=== PATIENT | female | born 1955 | race Caucasian/White ===

== ENCOUNTER → 2016-10-24 | Outpatient (CLI) | payer OTHER ==
[2016-10-24 09:43] LABS: ALANINE AMINOTRANSFERASE 25 U/L (9-52); ALBUMIN 4.6 g/dL (3.5-5.0); ALKALINE PHOSPHATASE 96 U/L (38-126); ANION GAP 12 (5-19); ASPARTATE AMINO TRANSFERASE 22 U/L (14-36); BILIRUBIN,DIRECT 0.4 mg/dL (0.0-0.4); BILIRUBIN,TOTAL 0.6 mg/dL (0.2-1.3); BLOOD UREA NITROGEN 18 mg/dL (7-20); CALCIUM 10.4 mg/dL (8.4-10.2); CARBON DIOXIDE 25 mmol/L (22-30); CHLORIDE 96 mmol/L (98-107); CREATININE RESULT 0.72 mg/dL (0.52-1.25); GLUCOSE 95 mg/dL (75-110); POTASSIUM 4.5 mmol/L (3.6-5.0); SODIUM 133.1 mmol/L (137-145); TOTAL PROTEIN 8.5 g/dL (6.3-8.2)
== END ==
LOC: CCC 07:55
DX: I10 Essential (primary) hypertension (principal); E11.8 Type 2 diabetes mellitus with unspecified complications
CPT/HCPCS: 36415; 80053

== ENCOUNTER → 2017-04-27 | Outpatient (CLI) | payer OTHER ==
[2017-04-27 09:28] LABS: ABSOLUTE BASOPHILS # (AUTO) 0.1 10^3/uL (0.0-0.2); ABSOLUTE EOSINOPHILS # (AUTO) 0.1 10^3/uL (0.0-0.6); ABSOLUTE LYMPHOCYTES (AUTO) 1.6 10^3/uL (0.5-4.7); ABSOLUTE MONOCYTES (AUTO) 0.6 10^3/uL (0.1-1.4); ABSOLUTE NEUT (AUTO) 4.1 10^3/uL (1.7-8.2); BASOPHILS % (AUTO) 0.8 % (0-2); HEMATOCRIT 39.5 % (36.0-47.0); HEMOGLOBIN 13.6 g/dL (12.0-15.5); LYMPHOCYTES % (AUTO) 25.2 % (13-45); MEAN CORPUSCULAR HEMOGLOBIN 28.3 pg (27.0-33.4); MEAN CORPUSCULAR HGB CONC 34.3 g/dL (32.0-36.0); MEAN CORPUSCULAR VOLUME 82 fl (80-97); MONOCYTES % (AUTO) 8.8 % (3-13); PLATELET COUNT 186 10^3/uL (150-450); SEGMENTED NEUTROPHILS % (AUTO) 64.2 % (42-78); TOTAL CELLS COUNTED % (AUTO) 100 %; WHITE BLOOD COUNT 6.4 10^3/uL (4.0-10.5)
[2017-04-27 09:48] LABS: ALANINE AMINOTRANSFERASE 32 U/L (9-52); ALBUMIN 4.7 g/dL (3.5-5.0); ALKALINE PHOSPHATASE 95 U/L (38-126); ANION GAP 14 (5-19); ASPARTATE AMINO TRANSFERASE 23 U/L (14-36); BILIRUBIN,DIRECT 0.1 mg/dL (0.0-0.4); BILIRUBIN,TOTAL 0.5 mg/dL (0.2-1.3); BLOOD UREA NITROGEN 17 mg/dL (7-20); CALCIUM 10.3 mg/dL (8.4-10.2); CARBON DIOXIDE 25 mmol/L (22-30); CHLORIDE 99 mmol/L (98-107); CHOLESTEROL 205.57 mg/dL (0-200); GLUCOSE 102 mg/dL (75-110); POTASSIUM 4.7 mmol/L (3.6-5.0); SODIUM 138.2 mmol/L (137-145); TOTAL PROTEIN 8.3 g/dL (6.3-8.2); TRIGLYCERIDES 96 mg/dL (<150)
[2017-04-27 09:59] LABS: DIRECT LDL 123 mg/dL (<100)
== END ==
LOC: CCC 08:20
DX: E10.8 Type 1 diabetes mellitus with unspecified complications (principal); I25.10 Atherosclerotic heart disease of native coronary artery without angina pectoris
CPT/HCPCS: 36415; 80053; 80061; 83036; 84443; 85025

== ENCOUNTER → 2017-06-08 | Outpatient (CLI) | payer OTHER ==
--- NOTE | 2017-06-08 12:27 | RADIOLOGY REPORT (SQ) ---
EXAM DESCRIPTION: CHEST PA/LATERAL COMPLETED DATE/TIME: 06/08/2017 10:55 am REASON FOR STUDY: ACUTE BRONCHITIS, UNSPECIFIED COMPARISON: None. EXAM PARAMETERS: NUMBER OF VIEWS: two views TECHNIQUE: Digital Frontal and Lateral radiographic views of the chest acquired. RADIATION DOSE: NA LIMITATIONS: none FINDINGS: LUNGS AND PLEURA: Interstitial markings are prominent bilaterally. No pleural effusions. No consolidation. MEDIASTINUM AND HILAR STRUCTURES: No masses or contour abnormalities. HEART AND VASCULAR STRUCTURES: Heart size is normal. Central venous structures are normal in appeara nce. BONES: No acute findings. HARDWARE: None in the chest. OTHER: No other significant finding. IMPRESSION: Prominent bilateral interstitial markings most likely chronic. Acute interstitial edema cannot be excluded. Clinical correlation is needed. TECHNICAL DOCUMENTATION: JOB ID: [id number] [employer]- All Rights Reserved Reading location - IP/workstation name: [email or web address]
--- NOTE | 2017-06-08 13:39 | EKG REPORT ---
SEVERITY:- ABNORMAL ECG - SINUS RHYTHM FIRST DEGREE AV BLOCK : Confirmed by: Taco Haque MD 08-Jun-2017 13:38:11
== END ==
LOC: OD 10:38
DX: J20.9 Acute bronchitis, unspecified (principal)
CPT/HCPCS: 71046; 93005; 93010

== ENCOUNTER → 2017-06-10 | Outpatient (CLI) | payer OTHER | LOC: CCC 11:16 | DX: J44.9 Chronic obstructive pulmonary disease, unspecified (principal); R73.03 Prediabetes; I25.10 Atherosclerotic heart disease of native coronary artery without angina pectoris | CPT/HCPCS: 36415; 83036; 83880 ==

== ENCOUNTER → 2018-05-06 | Outpatient (CLI) | payer OTHER ==
[2018-05-06 10:38] LABS: ABSOLUTE LYMPHOCYTES (AUTO) 1.6 10^3/uL (0.5-4.7); ABSOLUTE MONOCYTES (AUTO) 0.5 10^3/uL (0.1-1.4); ABSOLUTE NEUT (AUTO) 3.4 10^3/uL (1.7-8.2); BASOPHILS % (AUTO) 0.3 % (0-2); EOSINOPHILS % (AUTO) 0.8 % (0-6); HEMATOCRIT 37.9 % (36.0-47.0); HEMOGLOBIN 13.3 g/dL (12.0-15.5); LYMPHOCYTES % (AUTO) 28.7 % (13-45); MEAN CORPUSCULAR HEMOGLOBIN 28.4 pg (27.0-33.4); MEAN CORPUSCULAR HGB CONC 35.2 g/dL (32.0-36.0); MEAN CORPUSCULAR VOLUME 81 fl (80-97); MONOCYTES % (AUTO) 8.3 % (3-13); PLATELET COUNT 189 10^3/uL (150-450); RED BLOOD COUNT 4.69 10^6/uL (3.72-5.28); RED CELL DISTRIBUTION WIDTH 13.9 % (11.5-14.0); SEGMENTED NEUTROPHILS % (AUTO) 61.9 % (42-78); TOTAL CELLS COUNTED % (AUTO) 100 %; WHITE BLOOD COUNT 5.5 10^3/uL (4.0-10.5)
[2018-05-06 11:10] LABS: ALANINE AMINOTRANSFERASE 26 U/L (9-52); ALBUMIN 4.4 g/dL (3.5-5.0); ALKALINE PHOSPHATASE 90 U/L (38-126); ANION GAP 10 (5-19); ASPARTATE AMINO TRANSFERASE 22 U/L (14-36); BILIRUBIN,DIRECT 0.2 mg/dL (0.0-0.4); BILIRUBIN,TOTAL 0.6 mg/dL (0.2-1.3); BLOOD UREA NITROGEN 10 mg/dL (7-20); CALCIUM 9.8 mg/dL (8.4-10.2); CARBON DIOXIDE 26 mmol/L (22-30); CHLORIDE 101 mmol/L (98-107); CHOLESTEROL 107.54 mg/dL (0-200); GLUCOSE 107 mg/dL (75-110); POTASSIUM 4.6 mmol/L (3.6-5.0); SODIUM 137.3 mmol/L (137-145); TOTAL PROTEIN 8.3 g/dL (6.3-8.2); TRIGLYCERIDES 89 mg/dL (<150)
[2018-05-06 11:22] LABS: DIRECT LDL 51 mg/dL (<100)
== END ==
LOC: OD 09:17
DX: Z00.00 Encounter for general adult medical examination without abnormal findings (principal)
CPT/HCPCS: 36415; 80053; 80061; 83036; 84443; 85025

== ENCOUNTER → 2018-05-10 | Outpatient (CLI) | payer OTHER ==
--- NOTE | 2018-05-10 16:48 | RADIOLOGY REPORT (SQ) ---
EXAM DESCRIPTION: CHEST PA/LATERAL COMPLETED DATE/TIME: 05/10/2018 4:39 pm REASON FOR STUDY: RUL PNEUMONIA COMPARISON: 06/08/2017. EXAM PARAMETERS: NUMBER OF VIEWS: two views TECHNIQUE: Digital Frontal and Lateral radiographic views of the chest acquired. RADIATION DOSE: NA LIMITATIONS: none FINDINGS: LUNGS AND PLEURA: No opacities, masses or pneumothorax. No pleural effusion. MEDIASTINUM AND HILAR STRUCTURES: No masses or contour abnormalities. HEART AND VASCULAR STRUCTURES: Heart normal size. No evidence for failure. BONES: No acute findings. HARDWARE: None in the chest. OTHER: No other significant finding. IMPRESSION: NO SIGNIFICANT RADIOGRAPHIC FINDING IN THE CHEST. TECHNICAL DOCUMENTATION: JOB ID: [id number] [employer]- All Rights Reserved Reading location - IP/workstation name: [email or web address]
== END ==
LOC: CCC 16:26
DX: J18.9 Pneumonia, unspecified organism (principal)
CPT/HCPCS: 71046

== ENCOUNTER → 2018-06-15 | Outpatient (CLI) | payer OTHER ==
--- NOTE | 2018-06-15 10:35 | RADIOLOGY REPORT (SQ) ---
EXAM DESCRIPTION: CAROTID DOPPLER COMPLETED DATE/TIME: 06/15/2018 9:36 am REASON FOR STUDY: RETINAL ISCHEMIA H35.82 RETINAL ISCHEMIA COMPARISON: None. TECHNIQUE: Grayscale ultrasound, Doppler velocity and spectra, and color Doppler images acquired of the extra-cranial carotid and vertebral arteries. Images stored on PACS. LIMITATIONS: None. FINDINGS: RIGHT CAROTID CCA Velocities: Within normal limits. ICA Velocities Peak systolic 4.55 m/s. End diastolic 1.53 m/s. Proximal ICA/CCA peak systolic ratio 4.85. Complex plaque. LEFT CAROTID CCA Velocities: Within normal limits. ICA Velocities Peak systolic 2.55 m/s. End diastolic 0.87 m/s. Proximal ICA/CCA peak systolic ratio 2.70. Complex plaque. VERTEBRAL ARTERIES: Antegrade flow. Normal waveforms. SUBCLAVIAN ARTERIES: No finding. OTHER: No other significant finding. IMPRESSION: 70- 99% stenosis bilaterally. COMMENT: Quality ID #[id number]: Velocity criteria are extrapolated from the diameter data as defined by t he Society of Radiologists in Ultrasound Consensus Conference. Radiology 2003: 229; 340-346. TECHNICAL DOCUMENTATION: JOB ID: [id number] [employer]- All Rights Reserved Reading location - IP/workstation name: [email or web address]
== END ==
LOC: SP 08:38
DX: H35.82 Retinal ischemia (principal)
CPT/HCPCS: 93880

== ENCOUNTER → 2019-05-13 | Outpatient (CLI) | payer OTHER ==
--- NOTE | 2019-05-13 10:03 | RADIOLOGY REPORT (SQ) ---
EXAM DESCRIPTION: CHEST PA/LATERAL COMPLETED DATE/TIME: 05/13/2019 9:34 am REASON FOR STUDY: CHRONIC OBSTRUCTIVE PULMONARY DISEASE, UNSPECIFIED COMPARISON: 05/10/2018 EXAM PARAMETERS: NUMBER OF VIEWS: two views TECHNIQUE: Digital Frontal and Lateral radiographic views of the chest acquired. RADIATION DOSE: NA LIMITATIONS: none FINDINGS: LUNGS AND PLEURA: There is worsening interstitial and alveolar opacities predominantly inv olving the right upper and lower lobes. Minimal additional left basilar ill-defined opacity. Chroni c interstitial changes. No significant effusion. No pneumothorax. MEDIASTINUM AND HILAR STRUCTURES: No masses or contour abnormalities. HEART AND VASCULAR STRUCTURES: Borderline enlarged, stable. Vascular calcifications. BONES: No acute findings. HARDWARE: None in the chest. OTHER: No other significant finding. IMPRESSION: Worsening interstitial and alveolar opacities predominantly involving the right upper an d lower lobes, likely multifocal pneumonia. Alternative considerations include asymmetric edema. TECHNICAL DOCUMENTATION: JOB ID: [id number] 2010 [employer]- All Rights Reserved Reading location - IP/workstation name: [email or web address]
[2019-05-13 10:22] LABS: ABSOLUTE BASOPHILS # (AUTO) 0.1 10^3/uL (0.0-0.2); ABSOLUTE EOSINOPHILS # (AUTO) 0.1 10^3/uL (0.0-0.6); ABSOLUTE LYMPHOCYTES (AUTO) 1.4 10^3/uL (0.5-4.7); ABSOLUTE MONOCYTES (AUTO) 0.5 10^3/uL (0.1-1.4); ABSOLUTE NEUT (AUTO) 5.1 10^3/uL (1.7-8.2); BASOPHILS % (AUTO) 0.7 % (0-2); HEMATOCRIT 42.6 % (36.0-47.0); HEMOGLOBIN 14.5 g/dL (12.0-15.5); LYMPHOCYTES % (AUTO) 19.2 % (13-45); MEAN CORPUSCULAR HEMOGLOBIN 27.8 pg (27.0-33.4); MEAN CORPUSCULAR VOLUME 82 fl (80-97); MONOCYTES % (AUTO) 7.6 % (3-13); PLATELET COUNT 223 10^3/uL (150-450); RED BLOOD COUNT 5.21 10^6/uL (3.72-5.28); SEGMENTED NEUTROPHILS % (AUTO) 71.5 % (42-78); TOTAL CELLS COUNTED % (AUTO) 100 %; WHITE BLOOD COUNT 7.1 10^3/uL (4.0-10.5)
[2019-05-13 11:00] LABS: ALBUMIN 4.5 g/dL (3.5-5.0); ALKALINE PHOSPHATASE 94 U/L (38-126); ANION GAP 11 (5-19); ASPARTATE AMINO TRANSFERASE 28 U/L (14-36); BILIRUBIN,TOTAL 0.5 mg/dL (0.2-1.3); BLOOD UREA NITROGEN 18 mg/dL (7-20); CALCIUM 9.6 mg/dL (8.4-10.2); CARBON DIOXIDE 29 mmol/L (22-30); CHLORIDE 94 mmol/L (98-107); CHOLESTEROL 138.09 mg/dL (0-200); GLUCOSE 112 mg/dL (75-110); POTASSIUM 4.7 mmol/L (3.6-5.0); TOTAL PROTEIN 8.6 g/dL (6.3-8.2); TRIGLYCERIDES 67 mg/dL (<150)
[2019-05-13 11:11] LABS: DIRECT LDL 68 mg/dL (<100)
[2019-05-14 11:37] LABS: CREATININE URINE 28.3 mg/dL (Not Estab.); MICROALBUMIN URINE 41.8 ug/mL (Not Estab.)
[2019-05-14 12:51] LABS: CREATININE 0.68 mg/dL (0.52-1.25)
[2019-05-14 13:09] LABS: URINE CREATININE 53.1 mg/dL (15-278)
== END ==
LOC: CCC 09:06
DX: E11.8 Type 2 diabetes mellitus with unspecified complications (principal); J44.9 Chronic obstructive pulmonary disease, unspecified
CPT/HCPCS: 36415; 71046; 80053; 80061; 82043; 82570; 82575; 83036; 85025

== ENCOUNTER 2019-06-13 15:15 | Emergency (ER) | payer SELFPAY ==
--- NOTE | 2019-06-13 15:45 | ER Document Report ---
ED Medical Screen (RME) - General Chief Complaint: Dizziness Stated Complaint: LIGHTHEADED,OFF BALANCE Time Seen by Provider: 06/13/19 15:36 Primary Care Provider: [facility] [Primary Care Provider] - Follow up as needed Notes: HPI: 63-year-old female who is a smoker with history of diabetes coronary artery disease, [place], high cholesterol presenting for dizziness and off-balance sensation for 3 to 4 weeks. Reports numbness and tingling in the fingers of the right hand and toes of the right foot for that same timeframe. Denies chest pain shortness of breath at this time. Called her PCP who told her it sounded like an inner ear issue over the phone and recommended taking Claritin. She reports no visual change or loss. No slurred speech. Patient states when she stands up she feels like she needs to hold onto something because she is afraid she will fall I have greeted and performed a rapid initial assessment of this patient. A comprehensive ED assessment and evaluation of the patient, analysis of test results and completion of the medical decision making process will be conducted by additional ED providers PHYSICAL EXAMINATION: No nystagmus. No slurred speech. No visible facial droop. 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 When standing patient up patient does lean to the right side and has difficulty maintaining balance, limited exam in triage I have greeted and performed a rapid initial assessment of this patient. A comprehensive ED assessment and evaluation of the patient, analysis of test results and completion of medical decision making process will be conducted by an additional ED providers. TRAVEL OUTSIDE OF THE [place] IN LAST 30 DAYS: No - Related Data Allergies/Adverse Reactions: clindamycin Allergy (Intermediate, Verified 06/13/19 15:33) Hives Home Medications: metformin, meotprolol, amlodipine, atorvastain, Past Medical History - Social History Chew tobacco use (# tins/day): No Frequency of alcohol use: None Drug Abuse: None Physical Exam - Vital signs Vitals: Temp Pulse Resp BP Pulse Ox 97.9 F 85 16 149/57 H 92 06/13/19 15:24 06/13/19 15:24 06/13/19 15:24 06/13/19 15:24 06/13/19 15:24 Course - Vital Signs Vital signs: Temp Pulse Resp BP Pulse Ox 97.9 F 85 16 149/57 H 92 06/13/19 15:24 06/13/19 15:24 06/13/19 15:24 06/13/19 15:24 06/13/19 15:24 Doctor's Discharge - Discharge Referrals: [facility] [Primary Care Provider] - Follow up as needed
--- NOTE | 2019-06-13 16:12 | RADIOLOGY REPORT (SQ) ---
EXAM DESCRIPTION: CT HEAD WITHOUT IMAGES COMPLETED DATE/TIME: 06/13/2019 3:52 pm REASON FOR STUDY: dizzy COMPARISON: None. TECHNIQUE: Axial images acquired through the brain without intravenous contrast. Images reviewed wi th bone, brain and subdural windows. Additional sagittal and coronal reconstructions were generated. Images stored on PACS. All CT scanners at this facility use dose modulation, iterative reconstruction, and/or weight based d osing when appropriate to reduce radiation dose to as low as reasonably achievable (ALARA). [facility]: Dose Right [facility]: CareDose [facility]: Dose Right [facility]: Teradose 4D [facility]: [employer] RADIATION DOSE: CT Rad equipment meets quality standard of care and radiation dose reduction techniq ues were employed. CTDIvol: 53.2 mGy. DLP: 991 mGy-cm. LIMITATIONS: None. FINDINGS: There are multiple round height density lesions scattered throughout the cerebrum cerebell um that measure up to 15 x 13 mm ; there is minimal surrounding vasogenic edema and no considerable m ass effect or midline shift. There is no acute vascular territorial infarct, or extra-axial fluid collection. The jose-white lisandra er differentiation is preserved. There is no effacement of the basal subarachnoid cisterns. The ilana iber of the ventricles is concordant with the degree of sulcation. IMPRESSION: Multiple hyperdense parenchymal lesions that measure up to 15 mm x 13 mm and are associa casey with minimal surrounding vasogenic edema and no considerable mass effect or midline shift. Metas tases are part of the differential considerations and further evaluation with a contrast-enhanced MRI is recommended. EVIDENCE OF ACUTE STROKE: NO. COMMENT: This report was called to SAJAN HURTADO at16:05 on 06/13/2019. Quality ID # [id number]: Final reports with documentation of one or more dose reduction techniques (e.g., Au tomated exposure control, adjustment of the mA and/or kV according to patient size, use of iterative reconstruction technique) TECHNICAL DOCUMENTATION: JOB ID: [id number] 2010 [employer]- All Rights Reserved Reading location - IP/workstation name: [email or web address]
[2019-06-13 16:17] LABS: ABSOLUTE LYMPHOCYTES (AUTO) 1.1 10^3/uL (0.5-4.7); ABSOLUTE MONOCYTES (AUTO) 0.6 10^3/uL (0.1-1.4); ABSOLUTE NEUT (AUTO) 6.4 10^3/uL (1.7-8.2); BASOPHILS % (AUTO) 0.4 % (0-2); EOSINOPHILS % (AUTO) 0.5 % (0-6); HEMATOCRIT 40.1 % (36.0-47.0); HEMOGLOBIN 13.9 g/dL (12.0-15.5); LYMPHOCYTES % (AUTO) 13.1 % (13-45); MEAN CORPUSCULAR HEMOGLOBIN 27.9 pg (27.0-33.4); MEAN CORPUSCULAR HGB CONC 34.7 g/dL (32.0-36.0); MEAN CORPUSCULAR VOLUME 80 fl (80-97); PLATELET COUNT 232 10^3/uL (150-450); RED BLOOD COUNT 4.99 10^6/uL (3.72-5.28); RED CELL DISTRIBUTION WIDTH 14.8 % (11.5-14.0); TOTAL CELLS COUNTED % (AUTO) 100 %; WHITE BLOOD COUNT 8.1 10^3/uL (4.0-10.5)
--- NOTE | 2019-06-13 16:19 | ER Document Report ---
ED General - General Chief Complaint: Dizziness Stated Complaint: LIGHTHEADED,OFF BALANCE Time Seen by Provider: 06/13/19 15:36 Primary Care Provider: [facility] [NO LOCAL MD] - Follow up as needed Mode of Arrival: Ambulatory Information source: Patient TRAVEL OUTSIDE OF THE [place] IN LAST 30 DAYS: No - HPI Onset: Other - over the last 2-4 weeks (she cannot be sure) Severity: Moderate Pain Level: Denies Associated symptoms: Other - feels off balance Exacerbated by: Sitting, Standing, Movement Relieved by: Remaining still Similar symptoms previously: No Recently seen / treated by doctor: No Notes: 63 year old female smoker with a history of CAD, HTN, HLD, DM here for 2-4 weeks of feeling off balance and dizzy. The patient denies recent head traumas or recent falls. The patient take a daily aspirin but no other blood thinners. The patient says her mother of a ruptured brain aneurysm in her 60s. The pat ieveronica says she has mild headaches at baseline but she has not had any worsen headaches than normal for her. The patient denies recent fevers, chills, sweats, nausea, vomiting, vision changes. - Related Data Allergies/Adverse Reactions: clindamycin Allergy (Intermediate, Verified 06/13/19 15:33) Hives Home Medications: metformin, meotprolol, amlodipine, atorvastain, Past Medical History - General Information source: Patient - Social History Smoking Status: Current Every Day Smoker Chew tobacco use (# tins/day): No Frequency of alcohol use: None Drug Abuse: None Lives with: Family Family History: Reviewed & Not Pertinent Patient has suicidal ideation: No Patient has homicidal ideation: No - Past Medical History Cardiac Medical History: Reports: Hx Coronary Artery Disease, Hx Hypercholesterolemia, Hx Hypertension Endocrine Medical History: Reports: Hx Diabetes Mellitus Type 2 Review of Systems - Review of Systems Constitutional: No symptoms reported EENT: No symptoms reported Cardiovascular: No symptoms reported Respiratory: No symptoms reported Gastrointestinal: No symptoms reported Genitourinary: No symptoms reported Female Genitourinary: No symptoms reported Musculoskeletal: No symptoms reported Skin: No symptoms reported Hematologic/Lymphatic: No symptoms reported Neurological/Psychological: Other - Dizziness, Feeling off Balance Physical Exam - Vital signs Vitals: Temp Pulse Resp BP Pulse Ox 97.9 F 85 16 149/57 H 92 06/13/19 15:24 06/13/19 15:24 06/13/19 15:24 06/13/19 15:24 06/13/19 15:24 - Notes Notes: GENERAL: Well-appearing, well-nourished and in no acute distress. HEAD: Atraumatic, normocephalic. EYES: Pupils equal round and reactive to light, extraocular movements intact, sclera anicteric, conjunctiva are normal. ENT: Nares patent, oropharynx clear without exudates. Moist mucous membranes. NECK: Normal range of motion, supple without lymphadenopathy or JVD. LUNGS: Breath sounds clear to auscultation bilaterally and equal. No wheezes rales or rhonchi. HEART: Regular rate and rhythm without murmurs, rubs or gallops. ABDOMEN: Soft, nontender, normoactive bowel sounds. No guarding, no rebound. No masses appreciated. EXTREMITIES: Normal range of motion, no pitting or edema. No clubbing or cyanosis. NEUROLOGICAL: Cranial nerves II through XII grossly intact. Mild finger to nose ataxia. Normal speech. Unable to test gait but it has been reported as abnormal. PSYCH: Normal mood, normal affect. SKIN: Warm, Dry, normal turgor, no rashes or lesions noted. Course - Re-evaluation Re-evalutation: 06/13/19 18:56 The patient was found to have multiple enhancing lesions in her brain on MRI (was performed in follow up after a head CT was abnormal). I spoke with Dr. Bautista of Oncology at [facility] and the plan is for the patient to have a CT chest/abd/pelv here in the ER for cancer screening and then urgent outpatient follow up with [facility]. 06/13/19 20:34 CT of chest/abd/pelv show a right lung mass (likely primary) and likely metastatic disease in her adrenal glands, spleen, and pancreas. Dr. Bautista of [facility] On[facility] was called back and she recommends Decadron for the cerebral edema and she will help coordinate urgent outpatient follow up with [facility] for biopsy. - Vital Signs Vital signs: Temp Pulse Resp BP Pulse Ox 97.9 F 74 21 H 126/77 H 97 06/13/19 15:24 06/13/19 16:21 06/13/19 17:43 06/13/19 17:43 06/13/19 16:21 - Laboratory Result Diagrams: 06/13/19 16:09 06/13/19 16:09 Laboratory results interpreted by me: 06/13/19 06/13/19 16:09 16:09 RDW 14.8 H Seg Neutrophils % 79.0 H Sodium 130.5 L Chloride 95 L - Diagnostic Test Radiology reviewed: Image reviewed, Reports reviewed - EKG Interpretation by Me EKG shows normal: Sinus rhythm, [place], Intervals, QRS Complexes Rate: Normal Rhythm: NSR Additional EKG results interpreted by me: 06/13/19 16:19 T wave inversion in aVR, aVL Discharge - Discharge Clinical Impression: Dizziness, Brain mass Lung cancer Qualifiers: Laterality: right Lung location: upper lobe of lung Qualified Code(s): C34.11 - Malignant neoplasm of upper lobe, right bronchus or lung Condition: Fair Disposition: HOME, SELF-CARE Additional Instructions: You have a lung mass concerning for lung cancer and other areas in your body concerning for metastatic disease. Start taking Decadron as prescribed. You need to follow up with [facility] (you should be called tomorrow) to schedule follow up and likely a biopsy and to come out with a treatment plan. It is recommended you also speak with your primary care doctor to help you coordinate your care. Prescriptions: Dexamethasone [Decadron] 4 mg PO BID 4 Days #8 tablet Referrals: [facility] [NO LOCAL MD] - Follow up as needed
[2019-06-13 16:27] LABS: INTERNATIONAL RATION (INR) 0.98
[2019-06-13 16:36] LABS: ALBUMIN 4.2 g/dL (3.5-5.0); ALKALINE PHOSPHATASE 94 U/L (38-126); ANION GAP 10 (5-19); ASPARTATE AMINO TRANSFERASE 26 U/L (14-36); BILIRUBIN,TOTAL 0.6 mg/dL (0.2-1.3); BLOOD UREA NITROGEN 14 mg/dL (7-20); CALCIUM 9.5 mg/dL (8.4-10.2); CARBON DIOXIDE 26 mmol/L (22-30); CHLORIDE 95 mmol/L (98-107); GLUCOSE 98 mg/dL (75-110); POTASSIUM 4.5 mmol/L (3.6-5.0); TOTAL PROTEIN 8.2 g/dL (6.3-8.2)
--- NOTE | 2019-06-13 17:41 | RADIOLOGY REPORT (SQ) ---
EXAM DESCRIPTION: MRI HEAD COMBO IMAGES COMPLETED DATE/TIME: 06/13/2019 5:23 pm REASON FOR STUDY: eval for headbleed vs cancer COMPARISON: CT brain from earlier same date. TECHNIQUE: Multiplanar imaging includes noncontrasted T1, T2, FLAIR, diffusion with ADC map and post gadolinium contrast T1 sequences. Images stored on PACS. CONTRAST TYPE AND DOSE: 10 mL Dotarem. RENAL FUNCTION: Not indicated. ACR Type II contrast agent associated with few, if any, unconfounded cases of NSF LIMITATIONS: None. FINDINGS: ANATOMY: No anomalies. Normal vascular flow voids. Pituitary fossa normal. CSF SPACES: Normal in size and contour. No hemorrhage. CEREBRUM: Innumerable bilateral cerebral ring enhancing lesions with associated vasogenic edema. Lar gest measure up to 1.5 cm in maximal transverse dimension. No suggestion of intracranial hemorrhage. No significant shift. Patchy small vessel changes otherwise. POSTERIOR FOSSA: Numerous ring-enhancing lesions, including in the upper brainstem as well as in the cerebellum. Largest is in the left nicolas cerebellum and measures close to 2.8 cm in maximal transvers e dimension. DIFFUSION IMAGING: No evidence of recent CVA. ORBITS: No masses. Globes normal. PARANASAL SINUSES: No fluid levels. Mucosa normal. OTHER: No other significant finding. IMPRESSION: 1. Innumerable supratentorial and infratentorial ring-enhancing lesions. Most likely etiology is met astatic disease. EVIDENCE OF ACUTE STROKE: NO. TECHNICAL DOCUMENTATION: JOB ID: [id number] 2010 [employer]- All Rights Reserved Reading location - IP/workstation name: [email or web address]
--- NOTE | 2019-06-13 18:39 | EKG REPORT ---
SEVERITY:- BORDERLINE ECG - SINUS RHYTHM PROBABLE LEFT ATRIAL ABNORMALITY : Confirmed by: Taco Haque MD 13-Jun-2019 18:39:25
--- NOTE | 2019-06-13 19:45 | RADIOLOGY REPORT (SQ) ---
EXAM DESCRIPTION: CT CHEST WITH; CT ABD/PELVIS WITH IV ONLY IMAGES COMPLETED DATE/TIME: 06/13/2019 6:13 pm REASON FOR STUDY: eval for cause of mets. patient with brain mets; eval for cause of mets. brain met s noted. No abdominal pain or shortness of breath. No current symptoms. CT head was performed for dizziness. COMPARISON: CT head, same date. MRI brain, same date. CONTRAST TYPE AND DOSE: contrast/concentration: Isovue 350.00 mg/ml; Total Contrast Delivered: 80.0 ml; Total Saline Delivered: 55.0 ml RENAL FUNCTION: GFR > 60. TECHNIQUE: CT scan of the chest performed using helical scanning technique with dynamic intravenous contrast injection. Images reviewed with lung, soft tissue and bone windows. Reconstructed coronal a nd sagittal MPR images reviewed. All images stored on PACS. CT scan of the abdomen and pelvis performed with intravenous and oral contrast using helical scanning technique with dynamic intravenous contrast injection. Images reviewed with lung, soft tissue and b one windows. Reconstructed coronal and sagittal MPR images reviewed. Delayed images for evaluation of the urinary system also acquired and evaluated. All images stored on PACS. All CT scanners at this facility use dose modulation, iterative reconstruction, and/or weight based d osing when appropriate to reduce radiation dose to as low as reasonably achievable (ALARA). [facility]: Dose Right [facility]: CareDose [facility]: Dose Right [facility]: Teradose 4D [facility]: [employer] RADIATION DOSE: CT Rad equipment meets quality standard of care and radiation dose reduction techniq ues were employed. CTDIvol: 6.0 - 8.2 mGy. DLP: 832 mGy-cm. . LIMITATIONS: None. FINDINGS: CHEST: AXILLAE: No adenopathy. CHEST WALL: No masses. No subcutaneous air. LUNGS: The trachea has normal caliber and appearance. Background moderate pulmonary emphysema. Ther e is a right perihilar mass in the right upper lobe measuring 4.7 x 3.7 cm, encasing and occluding th e right upper lobe pulmonary artery and vein. This encases the right main and all 3 lobar pulmonary arteries. No postobstructive atelectasis or pneumonia. No other pulmonary nodules. PLEURA: No effusions. No calcifications. THYROID: No masses or significant asymmetry. HILAR AND MEDIASTINAL STRUCTURES: There are enlarged right hilar, mediastinal, and left hilar lymph n odes. A pretracheal node measures 4.6 x 3.9 cm. A subcarinal node measures 5.4 x 3.5 cm. A left ao rtic pulmonary window node measures 2.3 x 1.1 cm. There is an anterior mediastinal lymph node measur ing 1.6 x 1.3 cm. There is mass effect secondary to lymphadenopathy on the superior vena cava withou t occlusion. Esophagus is unremarkable. AORTA AND GREAT VESSELS: No aneurysm. No dissection. PULMONARY ARTERIES: Encasement of the main pulmonary arteries with narrowing/ occlusion of the right upper lobe pulmonary arteries as described. No pulmonary embolism. HEART: No pericardial effusion. HARDWARE AND LIFELINES: None. BONES: No suspicious bone lesions. OTHER: There is an enlarged right supraclavicular lymph node measuring 2.7 x 1.8 cm directly abutting the right jugular vein with mass effect. ABDOMEN AND PELVIS: LIVER: Liver has normal size and contour. No focal hepatic mass. Hepatic and portal veins are paten t. No biliary ductal dilation. SPLEEN: Normal size. Indeterminate 2.6 x 2.3 cm hypodense lesion within the splenic parenchyma, with mild contour anomaly becoming less apparent on delayed phase images, indeterminate. No perisplenic fluid or subcapsular hematoma. PANCREAS: There is subtle prominence of the pancreatic body with very subtle 1 cm hypodense lesion wi thin the parenchyma. Very mild focal pancreatic ductal dilation adjacent to this lesion with duct me asuring up to 5 mm. The pancreatic head and tail have an otherwise normal appearance. No peripancre atic inflammation or fluid. GALLBLADDER: Cholelithiasis. No gallbladder wall thickening or pericholecystic fluid. ADRENAL GLANDS: 2 indeterminate right adrenal nodules, the larger measuring 1.9 cm and the smaller al diann the right lateral limb measures 1.4 cm. No left adrenal nodules. RIGHT KIDNEY AND URETER: No solid masses. No significant calcifications. No hydronephrosis or hyd roureter. LEFT KIDNEY AND URETER: Small left renal cortical cyst. No solid enhancing renal mass. No signific ant calcifications. No hydronephrosis or hydroureter. AORTA AND VESSELS: No aneurysm. No dissection. Renal arteries, SMA, celiac without stenosis. RETROPERITONEUM: No retroperitoneal adenopathy, hemorrhage or masses. LARGE AND SMALL BOWEL: No dilatation. No masses. No wall thickening. APPENDIX: Surgically absent. ABDOMINAL WALL: No hernia or masses. PERITONEAL CAVITY: No free air. No free fluid. No peritoneal implants or masses. PELVIS: Uterus and ovaries have normal size. No adnexal mass. Urinary bladder has normal contour. BONES: No suspicious bone lesions. OTHER: No other significant finding. IMPRESSION: 1. Right upper lobe mass abutting the medial pleura at the right perihilar region. The mass encases the right pulmonary arteries and vein. Findings are suspicious for primary lung carcinoma. This wou ld be amenable to endobronchial biopsy. 2. Mediastinal and right supraclavicular lymphadenopathy suspicious for metastatic disease. 3. 2 right adrenal nodules highly suggestive of metastatic disease. 4. Indeterminate splenic lesion may represent metastatic disease. PET CT may be helpful. 5. Subtle lesion in the body of the pancreas is indeterminate. Pancreatic protocol MRI may be helpfu l. 6. Background moderate pulmonary emphysema. TECHNICAL DOCUMENTATION: JOB ID: [id number] Quality ID # [id number]: Final reports with documentation of one or more dose reduction techniques (e.g., Au tomated exposure control, adjustment of the mA and/or kV according to patient size, use of iterative reconstruction technique) 2010 [employer]- All Rights Reserved Reading location - IP/workstation name: [email or web address]
[2019-06-13] MEDS ORDERED: DEXAMETHASONE 4 MG TABLET PO ONE (20:57)
[2019-06-13 22:05] VITALS: BP 135/64
== END 2019-06-13 22:01 | disposition home or self-care (01) ==
LOC: ER 15:15
DX: C34.11 Malignant neoplasm of upper lobe, right bronchus or lung (principal); G93.89 Other specified disorders of brain; R42 Dizziness and giddiness; R51 Headache; I25.10 Atherosclerotic heart disease of native coronary artery without angina pectoris; I10 Essential (primary) hypertension; E78.5 Hyperlipidemia, unspecified; E11.9 Type 2 diabetes mellitus without complications; Z79.82 Long term (current) use of aspirin; Z88.1 Allergy status to other antibiotic agents; Z79.899 Other long term (current) drug therapy; Z79.84 Long term (current) use of oral hypoglycemic drugs; F17.200 Nicotine dependence, unspecified, uncomplicated
CPT/HCPCS: 93005; 99284; 36415; 83735; 85025; 85610; 80053; 84484; 70553; 70450; 71260; 74177; 93010; A9576; J8540